=== PATIENT | female | born 1985 | race Caucasian/White ===

== ENCOUNTER → 2016-08-20 | Outpatient (CLI) | payer OTHER ==
[~2016-08-20] MED LIST: ADAL40KI INJ; ETOD500T95 PO; FERR50TA3 PO; OMEP20TA31 PO; ONDA4TAB46 PO; PRED10TA PO; PSYL48.59 PO; SECU1INJ
[2016-08-25 17:03] LABS: IGA SERUM 314 mg/dL (81-463); TIS TRANS IGA 1 U/mL (<4)
== END | disposition home or self-care (01) ==
LOC: C.LAB1850 14:50
PROVIDERS: ATTEND Registered Nurse
DX: Z79.52 Long term (current) use of systemic steroids (principal)

== ENCOUNTER → 2016-08-23 | Day surgery (SDC) | payer OTHER ==
[~2016-08-23] VITALS: Ht 154.9 cm; Wt 84.1 kg
[~2016-08-23] MED LIST changes: +ATROPINE SULFATE 0.1 MG/ML 5ML SYR IV PRN; +EpHEDrine SULFATE INJ 50 MG/ML AMP IV PRN; +FENTANYL CITRATE INJ 50 MCG/1 ML 2 ML VIAL ONE; +LIDOCAINE HCL 2% 2 ML VIAL (20MG/ML) ONE; +PROPOFOL IV EMULSION 10 MG/ML 20 ML VIAL IV ONE; +SODIUM CHLORIDE 0.9% 500ML 500 ML IV ONE
[2016-08-23 14:34] VITALS: Ht 154.9 cm; Wt 84.1 kg
[2016-08-23 15:01] VITALS: TEMP 36.9
--- NOTE | 2016-08-23 15:02 | Endo History and Physical ---
History & Physical Date of Service: Aug 23, 2016. Chief Complaint: Nausea, bloating Referring Physician: Kristi Saucedo History of Present Illness 31 yo CF who presents for EGD secondary to nausea and bloating. Past Surgical History Hx Cardiac Surgery: No Hx Internal Defibrillator: No Hx Pacemaker: No Hx Abdominal Surgery: No Hx Post-Op Nausea and Vomiting: No Hx Cancer Surgery: No Hx Thoracic Surgery: No Hx Orthopedic: Yes (right knee) Hx Urinary Tract Surgery: No Family History Colon CA, IBD Social History Smoking Status: Never Smoker Hx Substance Use: No Hx Alcohol Use: Yes (occassionally) Allergies Coded Allergies: Benzyl Alcohol (Verified Allergy, Unknown, RASH, 08/23/16) Etanercept (Verified Allergy, Unknown, RASH, 08/23/16) Tromethamine (Verified Allergy, Unknown, RASH, 08/23/16) Current Medications Reported Home Medications Medications Dose Route/Sig Max Daily Dose Days Date Category Cosentyx (Secukinumab) 150 Mg/Ml Inj MONTHLY 08/23/16 Reported Iron (Ferrous Sulfate) (Ferrous Sulfate) 50 Mg Tab 65 Mg PO QAM 08/23/16 Reported Eq Omeprazole (Omeprazole) 20 Mg Tab 08/23/16 Reported Etodolac 500 Mg Tab 1 Tab PO BID 30 08/23/16 Reported Prednisone 10 Mg Tab 10 Mg PO QAM 08/23/16 Reported Vital Signs Weight (Kilograms): 84.09 Height (Feet): 5 Height (Inches): 1 Physical Exam General Appearance: WD/WN, no apparent distress Respiratory/Chest: Auscultation: breath sounds normal Cardiovascular: Heart Auscultation: RRR Abdomen: Bowel Sounds: normal Inspection & Palpation: soft, non-distended, no tenderness, guarding & rebound Assessment and Plan Assessment: 31 yo CF who presents for EGD secondary to nausea and bloating. Plan: Proceed with EGD.
--- NOTE | 2016-08-23 15:21 | GI REPORT ---
Procedure Date: 08/23/2016 3:05 PM Procedure: Upper GI endoscopy Indications: Abdominal bloating Medicines: Monitored Anesthesia Care Complications: No immediate complications. Estimated Blood Loss: Estimated blood loss: none. Procedure: Pre-Anesthesia Assessment: - Prior to the procedure, a History and Physical was performed, and patient medications and allergies were reviewed. The patient's tolerance of previous anesthesia was also reviewed. The risks and benefits of the procedure and the sedation options and risks were discussed with the patient. All questions were answered, and informed consent was obtained. Prior Anticoagulants: The patient has taken no previous anticoagulant or antiplatelet agents. ASA Grade Assessment: II - A patient with mild systemic disease. After reviewing the risks and benefits, the patient was deemed in satisfactory condition to undergo the procedure. After obtaining informed consent, the endoscope was passed under direct vision. Throughout the procedure, the patient's blood pressure, pulse, and oxygen saturations were monitored continuously. The scope was introduced through the mouth, and advanced to the second part of duodenum. The upper GI endoscopy was accomplished without difficulty. The patient tolerated the procedure well. Findings: The esophagus was normal. The entire examined stomach was normal. Biopsies were taken with a cold forceps for Helicobacter pylori testing. The examined duodenum was normal. Biopsies for histology were taken with a cold forceps for evaluation of celiac disease. Impression: - Normal esophagus. - Normal stomach. Biopsied. - Normal examined duodenum. Biopsied. Recommendation: - Resume previous diet. - Continue present medications. - Await pathology results. - Return to primary care physician as previously scheduled. Ankit Stockton DO 08/23/2016 3:20:34 PM This report has been signed electronically. Note Initiated On: 08/23/2016 3:05 PM I attest to the content of the Intraoperative Record and orders documented therein, exceptions below
--- NOTE | 2016-08-23 15:36 | Anesthesiology Progress Note ---
Anesthesia Post Op Note Date & Time Aug 23, 2016 at 15:36 Vital Signs Pain Intensity: 0 Vital Signs Past 12 Hours Date Time Temp Pulse Resp B/P (MAP) Pulse Ox O2 Delivery O2 Flow Rate FiO2 08/23/16 15:20 70 16 105/64 (78) 96 Room Air 08/23/16 15:01 36.9 95 20 132/83 (99) 99 Room Air Notes Mental Status: alert / awake / arousable, participated in evaluation Pt Amnestic to Procedure: Yes Nausea / Vomiting: adequately controlled Pain: adequately controlled Airway Patency, RR, SpO2: stable & adequate BP & HR: stable & adequate Hydration State: stable & adequate Anesthetic Complications: no major complications apparent
--- NOTE | 2016-08-23 15:46 | Discharge Instructions ---
Endoscopy Patient Instructions Date / Procedure(s) Performed Aug 23, 2016. EGD Allergy Information Coded Allergies: Benzyl Alcohol (Verified Allergy, Unknown, RASH, 08/23/16) Etanercept (Verified Allergy, Unknown, RASH, 08/23/16) Tromethamine (Verified Allergy, Unknown, RASH, 08/23/16) Discharge Date / Findings Aug 23, 2016. Biopsies of the gastric antrum and Duodenum Medication Instructions OK to resume all medications today as prescribed Reported Home Medications Medications Dose Route/Sig Max Daily Dose Days Date Category Cosentyx (Secukinumab) 150 Mg/Ml Inj MONTHLY 08/23/16 Reported Iron (Ferrous Sulfate) (Ferrous Sulfate) 50 Mg Tab 65 Mg PO QAM 08/23/16 Reported Eq Omeprazole (Omeprazole) 20 Mg Tab 08/23/16 Reported Etodolac 500 Mg Tab 1 Tab PO BID 30 08/23/16 Reported Prednisone 10 Mg Tab 10 Mg PO QAM 08/23/16 Reported Provider Instructions Activity Restrictions - No exercising or heavy lifting for 24 hours. - Do not drink alcohol the day of the procedure. - Do not drive a car or operate machinery until the day after the procedure. - Do not make any important decisions or sign important papers in 24 hours after the procedure. Following Day: - Return to full activity which may include returning to work/school. Diet Start your diet with liquids and light foods (jello, soup, juice, toast). Then eat your usual diet if not nauseated. Treatment For Common After Affects For mild abdominal pain, bloating, or excessive gas: - Rest - Eat lightly - Lie on right side Follow-Up Information Follow-up with Kristi Saucedo as scheduled Anesthesia Information What You Should Know You have had a procedure that required some medicine to reduce anxiety and discomfort. This treatment is called moderate sedation. After receiving the treatment, you may be sleepy, but you will be able to breathe on your own. The effects of the treatment may last for several hours. Follow these instructions along with Activity/Diet recommendations noted above: * Do NOT do anything where dizziness or clumsiness would be dangerous. * Rest quietly at home today, then you can be up and about tomorrow. * Have a responsible person stay with you the rest of today. * You may have had an I.V. today. If so, you may take the dressing off later today. Recommendations Call your doctor if: * Trouble breathing * Continuous vomiting for more than 24 hours * Temperature above 101 degrees * Severe abdominal pain or bloating * Pain not relieved by pain medicine ordered * There is increased drainage or redness from any incision * A large amount of rectal bleeding greater than 2-3 tablespoons. (If you had a polyp/s removed or have hemorrhoids, a small amount of blood - from the rectum is to be expected.) * You have any unanswered questions or concerns. IN THE EVENT OF A SERIOUS EMERGENCY, GO TO THE NEAREST EMERGENCY ROOM Your discharge instructions were prepared by provider Ankit Stockton. Patient Instructions Signature Page Alyssa Botello Patient (or Guardian) Signature/Date: I have read and understand the instructions given to me by my caregivers. Caregiver/RN/Doctor Signature/Date: The above-named patient and/or guardian has received patient instructions on this date. + Original Patient Signature Page (only) stays with chart. Please make copy for patient.
[2016-08-23 15:50] VITALS: BP 126/86; PULSE 56; O2SAT 98
== END | disposition home or self-care (01) ==
LOC: C.GI 14:16
PROVIDERS: ATTEND Internal Medicine
DX: R14.0 Abdominal distension (gaseous) (principal); K29.50 Unspecified chronic gastritis without bleeding; Z98.818 Other dental procedure status; E66.9 Obesity, unspecified; Z80.0 Family history of malignant neoplasm of digestive organs

== ENCOUNTER → 2016-08-31 | Day surgery (SDC) | payer OTHER ==
[2016-08-26 12:53] VITALS: BMI 35.0
[~2016-08-31] VITALS: Ht 154.9 cm; Wt 84.1 kg
[~2016-08-31] MED LIST changes: -ATROPINE SULFATE 0.1 MG/ML 5ML SYR IV PRN; -EpHEDrine SULFATE INJ 50 MG/ML AMP IV PRN; -FENTANYL CITRATE INJ 50 MCG/1 ML 2 ML VIAL ONE; -LIDOCAINE HCL 2% 2 ML VIAL (20MG/ML) ONE; +MIDAZOLAM HCL 5 MG/ML 1 ML VIAL ONE; -PROPOFOL IV EMULSION 10 MG/ML 20 ML VIAL IV ONE; -SECU1INJ
[2016-08-31 09:36] VITALS: Ht 154.9 cm; Wt 84.1 kg
--- NOTE | 2016-08-31 09:52 | Endo History and Physical ---
History & Physical Date of Service: Aug 31, 2016. Chief Complaint: alternating constipation Referring Physician: [facility] History of Present Illness 31 yo CF who presents for colonoscopy secondary to alternating bowel habits. Past Surgical History Hx Cardiac Surgery: No Hx Internal Defibrillator: No Hx Pacemaker: No Hx Abdominal Surgery: No Hx of Implantable Prosthesis: No Hx Post-Op Nausea and Vomiting: No Hx Cancer Surgery: No Hx Thoracic Surgery: No Hx Orthopedic: Yes (R KNEE SCOPE ) Hx Urinary Tract Surgery: No Family History Colon CA, IBD Social History Smoking Status: Never Smoker Hx Substance Use: No Hx Alcohol Use: Yes (occassionally) Allergies Coded Allergies: Benzyl Alcohol (Verified Allergy, Unknown, RASH, 08/26/16) Coconut (Verified Allergy, Unknown, BURNING IN MOUTH, 08/31/16) Etanercept (Verified Allergy, Unknown, RASH, 08/26/16) Tromethamine (Verified Allergy, Unknown, RASH, 08/26/16) Current Medications Reported Home Medications Medications Dose Route/Sig Max Daily Dose Days Date Category Dose Instructions Metamucil (Psyllium) 48.57 % Pow 1 Dose PO QAM 08/26/16 Reported Humira Pen (Adalimumab) 40 Mg/0.8 Ml Kit 40 Mg INJ [id number] 08/26/16 Reported NEW RX-TO START 08/28/16-ADVISED PT TO CHECK WITH SURGEON Iron (Ferrous Sulfate) (Ferrous Sulfate) 50 Mg Tab 65 Mg PO HS 08/23/16 Reported Eq Omeprazole (Omeprazole) 20 Mg Tab 20 Mg PO QAM 08/23/16 Reported Etodolac 500 Mg Tab 1 Tab PO BID 30 08/23/16 Reported Prednisone 10 Mg Tab 10 Mg PO QAM 08/23/16 Reported Vital Signs Weight (Kilograms): 84.09 Height (Feet): 5 Height (Inches): 1 Physical Exam General Appearance: WD/WN, no apparent distress Respiratory/Chest: Auscultation: breath sounds normal Cardiovascular: Heart Auscultation: RRR Abdomen: Bowel Sounds: normal Inspection & Palpation: soft, non-distended, no tenderness, guarding & rebound Assessment and Plan Assessment: 31 yo CF who presents for colonoscopy secondary to alternating bowel habits. Plan: Proceed with colonoscopy.
[2016-08-31] MEDS: FENTANYL CITRATE INJ 50 MCG/1 ML 2 ML VIAL ONE ×2 (10:24→10:34)
--- NOTE | 2016-08-31 10:51 | Discharge Instructions ---
Endoscopy Patient Instructions Date / Procedure(s) Performed Aug 31, 2016. Colonoscopy Allergy Information Coded Allergies: Benzyl Alcohol (Verified Allergy, Unknown, RASH, 08/26/16) Coconut (Verified Allergy, Unknown, BURNING IN MOUTH, 08/31/16) Etanercept (Verified Allergy, Unknown, RASH, 08/26/16) Tromethamine (Verified Allergy, Unknown, RASH, 08/26/16) Discharge Date / Findings Aug 31, 2016. Normal colonoscopy Medication Instructions OK to resume all medications today as prescribed Reported Home Medications Medications Dose Route/Sig Max Daily Dose Days Date Category Dose Instructions Metamucil (Psyllium) 48.57 % Pow 1 Dose PO QAM 08/26/16 Reported Humira Pen (Adalimumab) 40 Mg/0.8 Ml Kit 40 Mg INJ [id number] 08/26/16 Reported NEW RX-TO START 08/28/16-ADVISED PT TO CHECK WITH SURGEON Iron (Ferrous Sulfate) (Ferrous Sulfate) 50 Mg Tab 65 Mg PO HS 08/23/16 Reported Eq Omeprazole (Omeprazole) 20 Mg Tab 20 Mg PO QAM 08/23/16 Reported Etodolac 500 Mg Tab 1 Tab PO BID 30 08/23/16 Reported Prednisone 10 Mg Tab 10 Mg PO QAM 08/23/16 Reported Provider Instructions Activity Restrictions - No exercising or heavy lifting for 24 hours. - Do not drink alcohol the day of the procedure. - Do not drive a car or operate machinery until the day after the procedure. - Do not make any important decisions or sign important papers in 24 hours after the procedure. Following Day: - Return to full activity which may include returning to work/school. Diet Start your diet with liquids and light foods (jello, soup, juice, toast). Then eat your usual diet if not nauseated. Treatment For Common After Affects For mild abdominal pain, bloating, or excessive gas: - Rest - Eat lightly - Lie on right side Follow-Up Information Follow-up with [facility] as scheduled Anesthesia Information What You Should Know You have had a procedure that required some medicine to reduce anxiety and discomfort. This treatment is called moderate sedation. After receiving the treatment, you may be sleepy, but you will be able to breathe on your own. The effects of the treatment may last for several hours. Follow these instructions along with Activity/Diet recommendations noted above: * Do NOT do anything where dizziness or clumsiness would be dangerous. * Rest quietly at home today, then you can be up and about tomorrow. * Have a responsible person stay with you the rest of today. * You may have had an I.V. today. If so, you may take the dressing off later today. Recommendations Call your doctor if: * Trouble breathing * Continuous vomiting for more than 24 hours * Temperature above 101 degrees * Severe abdominal pain or bloating * Pain not relieved by pain medicine ordered * There is increased drainage or redness from any incision * A large amount of rectal bleeding greater than 2-3 tablespoons. (If you had a polyp/s removed or have hemorrhoids, a small amount of blood - from the rectum is to be expected.) * You have any unanswered questions or concerns. IN THE EVENT OF A SERIOUS EMERGENCY, GO TO THE NEAREST EMERGENCY ROOM Your discharge instructions were prepared by provider Ankit Stockton. Patient Instructions Signature Page Alyssa Botello Patient (or Guardian) Signature/Date: I have read and understand the instructions given to me by my caregivers. Caregiver/RN/Doctor Signature/Date: The above-named patient and/or guardian has received patient instructions on this date. + Original Patient Signature Page (only) stays with chart. Please make copy for patient.
--- NOTE | 2016-08-31 11:08 | GI REPORT ---
Procedure Date: 08/31/2016 10:20 AM Procedure: Colonoscopy Indications: Change in bowel habits Medicines: Fentanyl 150 micrograms IV, Midazolam 8 mg IV Complications: No immediate complications. Estimated Blood Loss: Estimated blood loss: none. Procedure: Pre-Anesthesia Assessment: - Prior to the procedure, a History and Physical was performed, and patient medications and allergies were reviewed. The patient's tolerance of previous anesthesia was also reviewed. The risks and benefits of the procedure and the sedation options and risks were discussed with the patient. All questions were answered, and informed consent was obtained. Prior Anticoagulants: The patient has taken no previous anticoagulant or antiplatelet agents. ASA Grade Assessment: II - A patient with mild systemic disease. After reviewing the risks and benefits, the patient was deemed in satisfactory condition to undergo the procedure. After I obtained informed consent, the scope was passed under direct vision. Throughout the procedure, the patient's blood pressure, pulse, and oxygen saturations were monitored continuously. The On-site loaner was introduced through the anus and advanced to the terminal ileum. The colonoscopy was performed without difficulty. The patient tolerated the procedure well. The quality of the bowel preparation was good. The terminal ileum, ileocecal valve, appendiceal orifice, and rectum were photographed. Findings: The colon (entire examined portion) appeared normal. Impression: - The entire examined colon is normal. - No specimens collected. Recommendation: - Resume previous diet. - Continue present medications. - Repeat colonoscopy at age 51 for surveillance. - Return to primary care physician as previously scheduled. Ankit Stockton DO 08/31/2016 11:07:39 AM This report has been signed electronically. Note Initiated On: 08/31/2016 10:20 AM I attest to the content of the Intraoperative Record and orders documented therein, exceptions below
[2016-08-31 11:25] VITALS: BP 127/81; PULSE 70; O2SAT 100
== END | disposition home or self-care (01) ==
LOC: C.GI 09:24
PROVIDERS: ATTEND Internal Medicine
DX: R19.4 Change in bowel habit (principal); Z80.0 Family history of malignant neoplasm of digestive organs; Z83.79 Family history of other diseases of the digestive system; Z79.899 Other long term (current) drug therapy

== ENCOUNTER 2016-09-07 10:28 | Emergency (ER) | payer OTHER ==
[~2016-09-07] VITALS: Ht 154.9 cm; Wt 81.8 kg
[~2016-09-07 10:28] MED LIST changes: -MIDAZOLAM HCL 5 MG/ML 1 ML VIAL ONE; -ONDA4TAB46 PO; -SODIUM CHLORIDE 0.9% 500ML 500 ML IV ONE
[2016-09-07 10:37] VITALS: TEMP 36.8; Ht 154.9 cm; Wt 81.8 kg
[2016-09-07] MEDS ORDERED: ONDA4TAB46 PO ×2 (10:45→16:41)
[2016-09-07 11:47] LABS: BASO % 0.2 %; BASO ABS # 0.02 K/uL (0-0.2); COMPLETE YES; EOS % 0.2 %; HEMATOCRIT 41.4 % (37-47); IG% 0.2 %; LYMPH % 10.4 %; LYMPH ABS # 1.18 K/uL (1.2-3.4); MEAN CELL VOLUME 88.1 fL (80-100); MEAN CORPUSCULAR HGB CONC 34.1 g/dl (32-36); MONO % 3.7 %; NEUT % 85.3 %; PLATELET COUNT 318 K/uL (130-400)
[2016-09-07 12:00] LABS: BUN/CREATININE RATIO 18.9 (10-20); CALCIUM 9.5 mg/dl (8.5-10.1); CREATININE 0.97 mg/dl (0.60-1.20); POTASSIUM 3.7 mmol/L (3.5-5.1)
[2016-09-07 12:03] LABS: ALB/GLOB RATIO 1.1 (0.9-2)
[2016-09-07 12:03] LABS: MANUAL MICROSCOPIC REQUIRED? NO; REVIEW REQ? YES; URINE APPEARANCE TURBID (CLEAR); URINE BILIRUBIN NEG (NEG); URINE COLOR DK YELLOW; URINE EPITHELIAL CELL AUTO >30 /lpf (0-5); URINE NITRITE NEG (NEG); URINE SPECIFIC GRAVITY 1.021 (1.000-1.030); UROBILINOGEN NEG (NEG); ZZUR CULT IF INDIC CLEAN CATCH YES
[2016-09-07] MEDS ORDERED: ONDANSETRON INJ 2 MG/ML 2 ML VIAL IV STA (12:17)
[2016-09-07] MEDS ORDERED: MoRPHine SULFATE 2 MG/ML CARP IV STA (12:17)
[2016-09-07] MEDS ORDERED: SODIUM CHLORIDE 0.9% 1000ML 1,000 ML IV ONE (12:30)
[2016-09-07] MEDS ORDERED: OPTIRAY 320 IV PRN (14:15)
--- NOTE | 2016-09-07 15:03 | DIAGNOSTIC IMAGING REPORT ---
CT SCAN OF THE ABDOMEN AND PELVIS WITH IV CONTRAST CLINICAL HISTORY: Upper abdominal pain. Nausea, vomiting, and diarrhea of 2 months duration. COMPARISON STUDY: No priors. TECHNIQUE: Following the IV administration of 93 cc of Optiray 320, CT scan of the abdomen and pelvis is performed from the lung bases to the proximal femora. Images are reviewed in the axial, sagittal, and coronal planes. IV contrast was administered without complication. Automated dose control exposure was utilized. CT DOSE: 556.04 mGy.cm FINDINGS: Lung bases: The heart is normal in size and without pericardial effusion. The lung bases are clear. Liver: The contrast-enhanced liver is top normal in size measuring over 17 cm in length. The liver demonstrates diffusely diminished attenuation consistent with hepatic steatosis. Fatty sparing is seen adjacent to the gallbladder fossa. There is no intrahepatic biliary ductal dilatation. The hepatic veins and portal veins are patent. Gallbladder: Unremarkable. Spleen: The spleen is enlarged measuring 14 cm in length. Pancreas: Unremarkable. Adrenal glands: Unremarkable. Kidneys: The contrast enhanced kidneys are normal in size and without hydronephrosis. The kidneys enhance symmetrically. Abdominal vasculature: The abdominal aorta is normal in course and caliber. Bowel: The small bowel and colon are normal in course and caliber. The appendix is normal as visualized. Peritoneum: There is no intraperitoneal free air or abdominal ascites. There is a fat-containing umbilical hernia. Lymphadenopathy: None. Pelvic viscera: The bladder, uterus, and adnexa are normal as visualized. There are bilateral ovarian follicles. Skeletal structures: No lytic or blastic lesions are seen. IMPRESSION: 1. There are no acute infectious or inflammatory findings in the abdomen or pelvis. 2. Hepatic steatosis. 3. Splenomegaly Electronically signed by: Dom Gupta M.D. 09/07/2016 3:01 PM Dictated Date/Time: 09/07/2016 2:56 PM
--- NOTE | 2016-09-07 16:36 | DIAGNOSTIC IMAGING REPORT ---
ULTRASOUND RIGHT UPPER QUADRANT ABDOMEN CLINICAL HISTORY: Upper abdominal pain. COMPARISON STUDY: Abdominal CT dated 09/07/2016. TECHNIQUE: Real-time, grayscale, and color flow sonography of the right upper quadrant of the abdomen was performed. Images are reviewed in the transverse and longitudinal planes. FINDINGS: Liver: The liver is normal in size and echotexture. There is no intrahepatic biliary ductal dilatation. The main portal vein is patent. Gallbladder: The gallbladder is normal in appearance. No gallstones are identified. There is no gallbladder wall thickening or pericholecystic fluid. A sonographic Molina's sign is reportedly absent. The common bile duct measures up to 0.3 cm in diameter. Pancreas: Not well visualized due to overlying bowel gas. Right kidney: Survey images of the right kidney demonstrate normal size and echotexture. There is no hydronephrosis. Ascites: None. IMPRESSION: Unremarkable sonographic assessment of the right upper quadrant. No gallstones are identified. Electronically signed by: Dom Gupta M.D. 09/07/2016 4:34 PM Dictated Date/Time: 09/07/2016 4:33 PM
[2016-09-07 16:40] VITALS: BP 116/70; PULSE 60; O2SAT 99
[2016-09-07] MEDS ORDERED: ONDANSETRON HOME PACK 4MG OD TAB ONE (16:55)
--- NOTE | 2016-09-09 16:09 | EMERGENCY ROOM VISIT NOTE ---
ED Visit Note First contact with patient: 12:03 Chief Complaint: Nausea, vomiting and diarrhea. History of Present Illness: Ms. Botello is a 31 year-old white female who ambulates into the ED accompanied by her complaining of nausea, vomiting and diarrhea for the last 2 months. Historically patient reports she has been having ongoing symptoms for the last 2 months. She has been seen by gastroenterology and reports a colonoscopy and an EGD were performed and was reported normal. She is waiting for biopsy reports from her EGD. Patient reports a 2 months ago she started developing nausea, vomiting and diarrhea. Since that time she reports her symptoms have been constant but has waxed and waned in intensity. She has been using Zofran which controls some of her nausea vomiting but there are some breakthrough of her discomfort. Associated with that she reports she has been having just a generalized discomfort throughout the abdomen that she describes as a fullness sensation. Most of her discomfort is in the right upper quadrant. She rates this discomfort 3/10. She has not identified any aggravating or alleviating factors related to this discomfort. She has not taken any medications for this discomfort prior to arrival at the hospital. She reports her nausea, vomiting and diarrhea worsens with eating. She has not taken any medications for her diarrhea but describes it as dark brown and watery. Associated with all her symptoms she reports she's been having chills but no barbara fevers. Lastly she reports her menstrual cycle is been irregular for the last 10 months. She was seen by her RESEARCH TEST ENGINE OPERATOR and reported a normal Pap smear. Her current menstrual cycle was 10 days late. She did take a home test last week and was negative. She does report today she just started noticing some small spotting. Patient denies sweats, skin eruptions, skin color changes, upper respiratory tract symptoms, shortness of breath, chest pain, hematemesis, constipation, rectal bleeding, black/tarry stools, urinary symptoms, hematuria, vaginal bleeding, vaginal discharge, back/flank pain. Review of Systems: As noted above in history of present illness. All body systems were reviewed and found to be negative as noted above. Past Medical History: As noted previously, ankylosing spondylitis, and status post unspecified right knee surgery, wisdom teeth extraction. Current Medications: Medications Dose Route/Sig Max Daily Dose Days Date Category Dose Instructions Zofran (Ondansetron HCl) 4 Mg Tab 4 Mg PO Q8 PRN 09/07/16 Reported Metamucil (Psyllium) 48.57 % Pow 1 Dose PO QAM 08/26/16 Reported Humira Pen (Adalimumab) 40 Mg/0.8 Ml Kit 40 Mg INJ [id number] 08/26/16 Reported NEW RX-TO START 08/28/16-ADVISED PT TO CHECK WITH SURGEON Iron (Ferrous Sulfate) (Ferrous Sulfate) 50 Mg Tab 65 Mg PO HS 08/23/16 Reported Eq Omeprazole (Omeprazole) 20 Mg Tab 20 Mg PO QAM 08/23/16 Reported Etodolac 500 Mg Tab 1 Tab PO BID 30 08/23/16 Reported Prednisone 10 Mg Tab 10 Mg PO QAM 08/23/16 Reported Allergies to Medications: Benzyl alcohol, etanercept, tromethamine. Social History: Patient is currently employed; she feels safe in her home environment; she denies tobacco and alcohol use. Physical Examination: Vital Signs: Date Time Temp Pulse Resp B/P (MAP) Pulse Ox O2 Delivery O2 Flow Rate FiO2 09/07/16 16:40 60 18 116/70 99 Room Air 09/07/16 14:24 68 18 131/76 100 Room Air 09/07/16 12:33 72 18 116/75 100 Room Air 09/07/16 10:37 36.8 87 16 139/90 99 Room Air GENERAL: 31-year-old female in mild to moderate distress due to pain, nontoxic- appearing, afebrile and hemodynamically stable. NEUROLOGICAL: Awake, alert and oriented to person, place and time. Answering questions appropriately and following commands. Normal gait. Good hand eye coordination. SKIN: Warm, dry and pink. No soft tissue eruptions or trauma noted. HEENT: Atraumatic and normocephalic. PERRLA. Sclera white and conjunctiva pink. Oral cavity moist and pink. Pharynx is nonerythematous or edematous. Speech normal. No lymphadenopathy. Trachea midline. No jugular venous distention. BACK: No tenderness over the bony spine. No CVA tenderness. THORAX: Lungs sounds are clear to auscultation and equal bilaterally with symmetrical chest wall. No wheezing, rales or rhonchi. No crepitus, tenderness , subcutaneous air or deformities noted. HEART: Regular rate and rhythm. No gallops, rubs or murmurs are appreciated. ABDOMEN: Soft with mild diffuse tenderness throughout the upper abdomen. Positive bowel sounds in all quadrants. No guarding, rigidity or organomegaly. EXTREMITIES: Moves all extremities well on command and with purpose. All distal neurovascular statuses are intact and equal bilaterally. ED Course: Patient is assessed as noted above. Patient's medication list was reviewed. Laboratory Testing: Test 09/07/16 10:50 09/07/16 11:35 Range/Units Urine Color DK YELLOW Urine Appearance TURBID CLEAR Urine pH 5.0 4.5-7.5 Urine Specific [place] 1.021 1.000-1.030 Urine Protein NEG NEG Urine Glucose (UA) NEG NEG Urine Ketones NEG NEG Urine Occult Blood 1+ NEG Urine Nitrite NEG NEG Urine Bilirubin NEG NEG Urine Urobilinogen NEG NEG Urine Leukocyte Esterase NEG NEG Urine WBC (Auto) 1-5 0-5 /hpf Urine RBC (Auto) 0-4 0-4 /hpf Urine Hyaline Casts (Auto) 1-5 0-5 /lpf Urine Epithelial Cells (Auto) >30 0-5 /lpf Urine Bacteria (Auto) 1+ NEG Urine Crystals AMORPHOUS SEDIMENT NONE PRSENT Urine Test NEG NEG White Blood Count 11.30 4.8-10.8 K/uL Red Blood Count 4.70 4.2-5.4 M/uL Hemoglobin 14.1 12.0-16.0 g/dL Hematocrit 41.4 37-47 % Mean Corpuscular Volume 88.1 80-100 fL Mean Corpuscular Hemoglobin 30.0 25-34 pg Mean Corpuscular Hemoglobin Concent 34.1 32-36 g/dl Platelet Count 318 130-400 K/uL Mean Platelet Volume 9.0 7.4-10.4 fL Neutrophils (%) (Auto) 85.3 % Lymphocytes (%) (Auto) 10.4 % Monocytes (%) (Auto) 3.7 % Eosinophils (%) (Auto) 0.2 % Basophils (%) (Auto) 0.2 % Neutrophils # (Auto) 9.64 1.4-6.5 K/uL Lymphocytes # (Auto) 1.18 1.2-3.4 K/uL Monocytes # (Auto) 0.42 0.11-0.59 K/uL Eosinophils # (Auto) 0.02 0-0.5 K/uL Basophils # (Auto) 0.02 0-0.2 K/uL RDW Standard Deviation 40.6 36.4-46.3 fL RDW Coefficient of Variation 12.6 11.5-14.5 % Immature Granulocyte % (Auto) 0.2 % Immature Granulocyte # (Auto) 0.02 0.00-0.02 K/uL Nucleated RBC Absolute Count (auto) 0.00 0-0 K/uL Nucleated Red Blood Cells % 0.0 % Sodium Level 139 136-145 mmol/L Potassium Level 3.7 3.5-5.1 mmol/L Chloride Level 106 98-107 mmol/L Carbon Dioxide Level 25 21-32 mmol/L Anion Gap 8.0 3-11 mmol/L Blood Urea Nitrogen 18 7-18 mg/dl Creatinine 0.97 0.60-1.20 mg/dl Est Creatinine Clear Calc Drug Dose 82.2 ml/min Estimated GFR () 90.8 Estimated GFR (Non- 78.4 BUN/Creatinine Ratio 18.9 10-20 Random Glucose 102 70-99 mg/dl Calcium Level 9.5 8.5-10.1 mg/dl Total Bilirubin 0.6 0.2-1 mg/dl Aspartate Amino Transf (AST/SGOT) 12 15-37 U/L Alanine Aminotransferase (ALT/SGPT) 19 12-78 U/L Alkaline Phosphatase 81 45-117 U/L Total Protein 7.7 6.4-8.2 gm/dl Albumin 4.1 3.4-5.0 gm/dl Globulin 3.6 2.5-4.0 gm/dl Albumin/Globulin Ratio 1.1 0.9-2 Lipase 169 73-393 U/L Urine Culture: Pending. Contrast Abdominal/Pelvic CT: Was reviewed by myself and read by the radiologist and shows no acute infectious or inflammatory findings, splenomegaly and hepatic steatosis. Right Upper Quadrant Ultrasound: Was reviewed by myself and read by the radiologist and shows an unremarkable assessment of the right upper quadrant with no gallstones or biliary disease observed. Patient was hydrated with normal saline and she received 2 mg of morphine IV for pain and 4 mg of Zofran IV for nausea. Patient was reassessed multiple times during her stay in the emergency department. Patient's case was reviewed with Dr. Jackson; we agreed on diagnostic approach , treatment, disposition and plan. Patient was educated about today's findings and instructed on her treatment plan ; she verbalizes understanding and agreement with this plan. Clinical Impression: Nausea and vomiting. Diarrhea. Abdominal discomfort. Decision-Making: Initially my differential diagnosis I considered GERD, esophageal dysfunction, gastritis, biliary colic, and other causes. Disposition: Patient discharged home in stable condition accompanied by her ; prior to departure she was reassessed and subjectively reported she was feeling better and rated her discomfort 3/10. Plan: Patient was encouraged to use 650 mg of acetaminophen as needed for pain/ discomfort. Patient was encouraged to use 4 mg of Zofran ODT every 6 hours for nausea/ vomiting. Patient was encouraged to use [id number] Imodium for diarrhea. Patient was encouraged to bland diet and stay well hydrated. Patient was encouraged to call her family doctor and youth manager about today's ED visit and request follow-up care and treatment. Patient was encouraged return the ED for worsening nausea/vomiting/diarrhea, uncontrolled plain, bloody vomitus, bloody stools, fevers or any new/concerning symptoms.
== END 2016-09-07 17:03 | disposition home or self-care (01) ==
LOC: C.EDB 10:29
DX: R11.2 Nausea with vomiting, unspecified (principal); R19.7 Diarrhea, unspecified; R10.11 Right upper quadrant pain; Z98.818 Other dental procedure status; Z98.890 Other specified postprocedural states; M45.9 Ankylosing spondylitis of unspecified sites in spine; Z79.52 Long term (current) use of systemic steroids